=== PATIENT | male | born 2000 | race American Indian/Alaskan Native ===

== ENCOUNTER 2021-10-25 18:43 | Emergency (ER) | payer SELFPAY ==
[2021-10-25 19:01] VITALS: BP 144/79
--- NOTE | 2021-10-25 19:46 | XRay Report ---
CHEST 2 VIEWS INDICATION / CLINICAL INFORMATION: CHEST PAIN. FINDINGS: SUPPORT DEVICES: None. HEART / MEDIASTINUM: No significant abnormality. LUNGS / PLEURA: No significant pulmonary or pleural abnormality. No pneumothorax. ADDITIONAL FINDINGS: No significant additional findings. IMPRESSION: 1. No acute findings. Signer Name: Luis Griffin MD Signed: 10/25/2021 7:41 PM Workstation Name: [email or web address]
== END 2021-10-26 06:13 | disposition left against medical advice (07) ==
LOC: ED 18:43
DX: R07.9 Chest pain, unspecified (principal); Z53.21 Procedure and treatment not carried out due to patient leaving prior to being seen by health care provider
CPT/HCPCS: 71046; 93005